=== PATIENT | female | born 1960 | race Caucasian/White ===

== ENCOUNTER 2017-09-03 07:42 | Day surgery (SDC) | payer BC ==
[2017-09-03] MEDS ORDERED: DIPHENHYDRAMINE 50 MG INJ ×2 (08:42→09:30)
[2017-09-03] MEDS ORDERED: MIDAZOLAM 1 MG/ML 2 ML INJ ×2 (09:29)
[2017-09-03] MEDS ORDERED: FENTAnyl 50 MCG/ML VIAL (09:30)
== END 2017-09-03 18:45 | disposition home or self-care (01) ==
LOC: GIL 07:42
DX: Z12.11 Encounter for screening for malignant neoplasm of colon (principal); K64.8 Other hemorrhoids; K64.4 Residual hemorrhoidal skin tags
CPT/HCPCS: 45378